=== PATIENT | male | born 1995 | race Caucasian/White ===

== ENCOUNTER 2018-12-19 17:44 | Emergency (ER) | payer BC ==
[~2018-12-19] VITALS: Ht 170.2 cm; Wt 87.3 kg
[2018-12-19 17:52] VITALS: BP 132/68
--- NOTE | 2018-12-19 17:55 | NUR ---
PT TO LOBBY WITH STEADY GAIT.
--- NOTE | 2018-12-19 18:02 | NUR ---
PT TO ER BED 12
--- NOTE | 2018-12-19 18:18 | NUR ---
laceration repaird 12/10/2018; requesting wound check and suture removal sutures intact clean no drainage
[2018-12-19 18:24] VITALS: BP 122/62
== END 2018-12-19 18:25 | disposition home or self-care (01) ==
LOC: MED 17:44
DX: S11.91XD Laceration without foreign body of unspecified part of neck, subsequent encounter (principal); X58.XXXD Exposure to other specified factors, subsequent encounter
CPT/HCPCS: 99281